=== PATIENT | female | born 1940 | race Caucasian/White ===

== ENCOUNTER 2018-02-17 13:00 | Outpatient (RCR) | payer MEDICARE, MEDICAID ==
[2016-10-22 17:03] VITALS: BP 148/76
[~2018-02-17 13:00] MED LIST: AMLODIPINE BESYL5 MG PO; BREO ELLIPTA 21 EACH IH; CLOPIDOGREL75 M1 PO; LEVOTHYROXIN0.075 MG PO; OMEPRAZOLE40 MG PO; SPIRIVA INH IH; VALIUM5 M1 PO
== END 2018-02-17 13:30 | disposition home or self-care (01) ==
LOC: OT 13:00
DX: R53.1 Weakness (principal); J18.9 Pneumonia, unspecified organism

== ENCOUNTER → 2018-05-29 | Outpatient (CLI) | payer MEDICARE, MEDICAID ==
[2016-10-22 17:03] VITALS: BP 148/76
[2018-05-31 00:43] LABS: ANA SCREEN with REFLEX Negative (Negative)
== END ==
LOC: LAB 09:36
PROVIDERS: Internal Medicine Pulmonary Disease
DX: R05 Cough (principal)

== ENCOUNTER 2019-01-18 16:50 | Inpatient (IN) | payer MEDICARE, MEDICAID ==
[~2019-01-18] VITALS: Ht 162.6 cm; Wt 87.9 kg
[2019-01-18 17:09] VITALS: BP 154/84
[2019-01-18] MEDS ORDERED: PRESERVISION A1 EACH PO (17:43)
[2019-01-18] MEDS ORDERED: SALINE NASAL SP88 M1 NS (17:43)
[2019-01-18] MEDS ORDERED: OCUVITE ADULT1 EAC1 PO (17:44)
[2019-01-18 19:04] VITALS: BP 137/86
[2019-01-19 06:23] VITALS: BP 167/81
[2019-01-19 07:41] LABS: BASO # 0.1 (0.02-0.10); EOS # 0.1 (0.04-0.40); EOS % 0.7 % (1.0-5.0); HEMATOCRIT 37.4 % (37.0-47.0); HEMOGLOBIN 11.7 g/dL (12.5-16.0); LYMPH# 1.7 (1.50-4.00); MEAN CELL VOLUME 77 fl (78-100); MEAN CORPUSCULAR HGB CONC 31 g/dL (33-37); MEAN PLATELET VOLUME 9.7 fl (7.4-10.4); MONO # 0.7 (0.20-0.80); NEU # 5.7 (1.40-6.50); PLATELET COUNT 451 K/mm3 (130-400); RED BLOOD COUNT 4.88 M/mm3 (4.10-5.30); WHITE BLOOD COUNT 8.5 K/mm3 (4.8-10.8)
[2019-01-19 07:57] LABS: CALCIUM 8.6 mg/dL (8.4-10.2); POTASSIUM 3.7 mmol/L (3.6-5.0)
[2019-01-19 07:59] LABS: MEAN CORPUSCULAR HEMOGLOBIN 24 pg (27-31); RED CELL DISTRIBUTION WIDTH 18.8 % (11.5-14.5)
[2019-01-19 12:57] LABS: URINE APPEARANCE CLEAR; URINE COLOR YELLOW; URINE PROTEIN(semi-quant) TRACE mg/dL (NEGATIVE)
[2019-01-19 12:58] LABS: URINE BILIRUBIN NEGATIVE (NEGATIVE); URINE BLOOD NEGATIVE (NEGATIVE); URINE GLUCOSE NEGATIVE (NEGATIVE); URINE KETONE 1+ (NEGATIVE); URINE LEUKOCYTE ESTERASE NEGATIVE (NEGATIVE); URINE NITRATE NEGATIVE (NEGATIVE); URINE UROBILINOGEN NORMAL (NORMAL); URINE WBC 0-1 /hpf (0-3)
[2019-01-19 18:20] VITALS: BP 137/80
[2019-01-20 06:08] VITALS: BP 154/88
[2019-01-20 18:22] VITALS: BP 132/82
[2019-01-21 05:52] VITALS: BP 145/81
[2019-01-21 18:20] VITALS: BP 136/80
[2019-01-22 05:45] VITALS: BP 161/61
[2019-01-22 18:18] VITALS: BP 118/72
[2019-01-23 06:17] VITALS: BP 129/71
[2019-01-23 18:45] VITALS: BP 99/63
[2019-01-24 06:05] VITALS: BP 129/80
[2019-01-24 10:01] LABS: EOS # 0.2 (0.04-0.40); EOS % 1.6 % (1.0-5.0); HEMATOCRIT 40.7 % (37.0-47.0); HEMOGLOBIN 12.5 g/dL (12.5-16.0); LYMPH# 2.1 (1.50-4.00); MEAN CELL VOLUME 76 fl (78-100); MEAN CORPUSCULAR HGB CONC 31 g/dL (33-37); RED BLOOD COUNT 5.34 M/mm3 (4.10-5.30); WHITE BLOOD COUNT 10.4 K/mm3 (4.8-10.8)
[2019-01-24 10:17] LABS: POTASSIUM 4.3 mmol/L (3.6-5.0)
[2019-01-24 10:41] LABS: MEAN CORPUSCULAR HEMOGLOBIN 23 pg (27-31); PLATELET COUNT 531 K/mm3 (130-400); RED CELL DISTRIBUTION WIDTH 20.1 % (11.5-14.5)
[2019-01-24 18:29] VITALS: BP 109/62
[2019-01-25 06:32] VITALS: BP 137/76
[2019-01-25 18:00] VITALS: BP 114/44
[2019-01-26 06:36] VITALS: BP 137/81
[2019-01-26 18:14] VITALS: BP 103/67
[2019-01-27 06:09] VITALS: BP 135/78
[2019-01-27 18:15] VITALS: BP 119/72
[2019-01-28 06:07] VITALS: BP 151/77
[2019-01-28 17:19] VITALS: BP 122/78
[2019-01-29 05:49] VITALS: BP 143/78
[2019-01-29 18:00] VITALS: BP 119/74
[2019-01-30 06:07] VITALS: BP 115/71
[2019-01-30 18:00] VITALS: BP 105/62
[2019-01-31 06:14] VITALS: BP 113/72
[2019-01-31 18:00] VITALS: BP 124/69
[2019-02-01 06:17] VITALS: BP 130/69
[2019-02-01] MEDS ORDERED: RT SPIRIVA INH18 MCG IH (10:55)
[2019-02-01] MEDS ORDERED: RT ADVAIR HFA 1112 G IH (10:55)
== END 2019-02-01 14:50 | disposition home health service (06) | DRG 947 ==
LOC: MED/SURG 16:50
PROVIDERS: Nurse Practitioner; Nurse Practitioner Family; Physician Assistant; ADMIT Nurse Practitioner Primary Care
DX: R53.81 Other malaise (principal); J96.01 Acute respiratory failure with hypoxia; J18.9 Pneumonia, unspecified organism; J44.0 Chronic obstructive pulmonary disease with (acute) lower respiratory infection; Z66 Do not resuscitate; I10 Essential (primary) hypertension; E78.00 Pure hypercholesterolemia, unspecified; K21.9 Gastro-esophageal reflux disease without esophagitis; Z86.73 Personal history of transient ischemic attack (TIA), and cerebral infarction without residual deficits
CPT/HCPCS: J1650; J7512

== ENCOUNTER 2020-06-15 13:27 | Emergency (ER) | payer MEDICARE, MEDICAID ==
[~2020-06-15 13:27] MED LIST changes: +OCUVITE ADULT1 EAC1 PO; +PRESERVISION A1 EACH PO; +RT ADVAIR HFA 1112 G IH; +RT SPIRIVA INH18 MCG IH; +SALINE NASAL SP88 M1 NS
== END 2020-06-15 13:39 | disposition left against medical advice (07) ==
LOC: ED 13:27
DX: Z72.9 Problem related to lifestyle, unspecified (principal)

== ENCOUNTER → 2021-03-04 | Outpatient (CLI) | payer MEDICARE, MEDICAID | LOC: RAD 08:13 | DX: S62.301D Unspecified fracture of second metacarpal bone, left hand, subsequent encounter for fracture with routine healing (principal); S62.615D Displaced fracture of proximal phalanx of left ring finger, subsequent encounter for fracture with routine healing ==

== ENCOUNTER 2021-03-10 09:42 | Outpatient (RCR) | payer MEDICARE, MEDICAID | END 2021-04-01 17:00 | LOC: OT 09:42 | DX: S62.351D Nondisplaced fracture of shaft of second metacarpal bone, left hand, subsequent encounter for fracture with routine healing (principal) ==

== ENCOUNTER 2023-07-13 11:17 | Emergency (ER) | payer MEDICARE, MEDICAID ==
[2023-07-13] MEDS ORDERED: MEMANTINE HCL5 MG (11:41)
[2023-07-13] MEDS ORDERED: ANORO ELLIPTA1 POW (11:42)
[2023-07-13] MEDS ORDERED: albuterol sulfate IH (12:21)
[2023-07-13] MEDS ORDERED: ATORVASTATIN CA10 MG PO (12:22)
[2023-07-13] MEDS ORDERED: ASPIRIN E.C. 8181 MG PO (12:22)
[2023-07-13] MEDS ORDERED: CETIRIZINE HCL10 MG PO (12:23)
[2023-07-13] MEDS ORDERED: COLACE100 M1 PO (12:24)
[2023-07-13] MEDS ORDERED: VITAMIN D350 MC1 PO (12:24)
[2023-07-13] MEDS ORDERED: TRELEGY ELLIPT1 EAC1 IH (12:25)
[2023-07-13] MEDS ORDERED: DONEPEZIL HCL10 MG PO (12:25)
[2023-07-13] MEDS ORDERED: LOSARTAN POTAS100 MG PO ×2 (12:30→12:32)
[2023-07-13] MEDS ORDERED: MUCINEX1200 MG PO (12:30)
[2023-07-13] MEDS ORDERED: MIRALAX17 GM PO (12:33)
[2023-07-13] MEDS ORDERED: [UNRECOGNIZED DRUG - OTHER] PO (12:35)
[2023-07-13] MEDS ORDERED: SENNA PO (12:35)
[2023-07-13] MEDS ORDERED: PRESERVISION A1 EAC2 PO (12:36)
[2023-07-13 12:37] LABS: URINE APPEARANCE CLEAR; URINE BILIRUBIN NEGATIVE (NEGATIVE); URINE BLOOD NEGATIVE (NEGATIVE); URINE COLOR YELLOW; URINE GLUCOSE NEGATIVE (NEGATIVE); URINE KETONE NEGATIVE (NEGATIVE); URINE LEUKOCYTE ESTERASE NEGATIVE (NEGATIVE); URINE NITRATE NEGATIVE (NEGATIVE); URINE PROTEIN(semi-quant) TRACE (NEGATIVE); URINE UROBILINOGEN NORMAL (NORMAL); URINE WBC 0-1 /hpf (0-3)
[2023-07-13 12:38] LABS: URINE MUCUS PRESENT (NOT PRESENT)
[2023-07-13 17:14] VITALS: BP 160/86
== END 2023-07-13 17:36 | disposition home or self-care (01) ==
LOC: ED 11:17
PROVIDERS: Family Medicine
DX: Z04.3 Encounter for examination and observation following other accident (principal); E66.9 Obesity, unspecified; W06.XXXA Fall from bed, initial encounter